=== PATIENT | female | born 1965 | race Caucasian/White ===

== ENCOUNTER 2021-07-12 09:03 | Emergency (ER) | payer MEDICAID, OTHER ==
[~2021-07-12] VITALS: Ht 152.4 cm; Wt 77.1 kg
[2021-07-12] MEDS ORDERED: IV NORMAL SALINE 1000 ML BAG IV ONE (09:15)
[2021-07-12] MEDS ORDERED: DIAZEPAM 2 MG TABLET PO ONE ×2 (09:15→10:30)
[2021-07-12] MEDS ORDERED: ONDANSETRON 4 MG/2 ML VIAL IV ONE (09:15)
[2021-07-12] MEDS ORDERED: MECLIZINE HCL 25 MG TABLET PO ONE ×2 (09:15→11:45)
[2021-07-12] MEDS ORDERED: DIAZEPAM 2 MG TABLET ONE ×2 (09:34→10:39)
[2021-07-12] MEDS ORDERED: MECLIZINE HCL 25 MG TABLET ONE (09:34)
[2021-07-12] MEDS ORDERED: ONDANSETRON 4 MG/2 ML VIAL ONE (09:34)
[2021-07-12 09:38] LABS: HEMATOCRIT 38.2 % (31.2-41.9); MEAN CORPUSCULAR HEMOGLOBIN 28.1 uug (24.7-32.8); MEAN CORPUSCULAR VOLUME 83.3 fL (75.5-95.3); PLATELET COUNT (AUTO) 264 K/uL (179-408)
[2021-07-12 09:49] LABS: CREATININE 0.7 mg/dL (0.6-1.3)
[2021-07-12] MEDS ORDERED: diphenhydrAMINE 50 MG/1 ML VIAL IV ONE (11:45)
--- NOTE | 2021-07-12 11:45 | NUR ---
pt still feels dizzy, unable to come out of bed and go to bathroom. aware
[2021-07-12] MEDS ORDERED: diphenhydrAMINE 50 MG/1 ML VIAL ONE (11:49)
--- NOTE | 2021-07-12 12:30 | NUR ---
pt able to walk to bathroom with steady gait.
[2021-07-12] MEDS ORDERED: DIAZ2TAB PO (12:47)
[2021-07-12] MEDS ORDERED: MECL-159 PO (12:47)
[2021-07-12] MEDS ORDERED: ONDA4TAB11 PO (12:47)
--- NOTE | 2021-07-12 13:12 | NUR ---
Patient discharged to home in stable condition. Written and verbal after care instructions given. Patient verbalizes understanding of instructions. Stressed follow up or return to ER for worsening s/s.pt here to take the pt home.
[2021-07-12 13:13] VITALS: BP 131/77
== END 2021-07-12 13:14 | disposition home or self-care (01) ==
LOC: ER 09:03
DX: R42 Dizziness and giddiness (principal)
CPT/HCPCS: 36415; 70450; 80048; 85025; 93005; 96361; 96374; 96375; 99284; J1200; J2405; A4663; J7030; J8597